=== PATIENT | female | born 1965 | race Caucasian/White ===

== ENCOUNTER 2020-01-07 21:29 | Emergency (ER) | payer BC ==
[2020-01-07] MEDS ORDERED: HYDROCODONE/APAP 10/325 TAB ONE (22:04)
[2020-01-07] MEDS ORDERED: FENTANYL CITR 100 MCG/2 ML ONE (23:10)
--- NOTE | 2020-01-08 00:21 | ER ---
Nurse's Notes [facility] Name: Leslye Pierson Age: 54 yrs Sex: Female : 1965 Arrival Date: 01/07/2020 Time: 21:30 Bed 18 Private MD: OMER RAMIREZ Diagnosis: Displaced fracture of greater tuberosity of right humerus;Other slipping, tripping and stumbling and falls Presentation: 01/06 21:37 Chief complaint: Patient states: I was walking my dog and he took off after something. jb4 The grass was wet so I fell on my right arm and I hurt something between my shoulder and elbow. I physically cannot move it. 21:37 Coronavirus screen: Client denies travel out of the [place] in the last 14 days. At this jb4 time, the client does not indicate any symptoms associated with coronavirus-19. Ebola Screen: No symptoms or risks identified at this time. Initial Sepsis Screen: Does the patient meet any 2 criteria? HR > 90 bpm. Yes Does the patient have a suspected source of infection? No. Patient's initial sepsis screen is negative. Risk Assessment: Do you want to hurt yourself or someone else? Patient reports no desire to harm self or others. Onset of symptoms was January 07, 2020 at 20:09. 21:37 Method Of Arrival: Ambulatory jb4 21:37 Acuity: YEFRI 3 jb4 Historical: - Allergies: 21:37 Sulfa (Sulfonamide Antibiotics); jb4 21:37 Cipro; jb4 - Home Meds: 21:37 Metformin Oral [Active]; Warfarin Oral [Active]; losartan 25 mg oral tab [Active]; jb4 - PMHx: 21:37 Hypertension; Diabetes - NIDDM; DVT; fatty liver; Hernia; jb4 - PSHx: 21:37 ; Cholecystectomy; Hysterectomy; Hernia repair; lap band; Carpal Tunnel Repair;jb4 - Immunization history:: Adult Immunizations up to date. - Social history:: Smoking status: Patient denies any tobacco usage or history of. Patient/guardian denies using alcohol, street drugs. Screenin:37 Abuse screen: Denies threats or abuse. Nutritional screening: No deficits noted. jb4 Tuberculosis screening: No symptoms or risk factors identified. Fall Risk None identified. Assessment: 21:37 General: Appears in no apparent distress. uncomfortable, Behavior is calm, cooperative, jb4 appropriate for age. Pain: Complains of pain in anterior aspect of right shoulder Pain radiates to right elbow Pain currently is 10 out of 10 on a pain scale. Quality of pain is described as shooting, Pain began 1 hour ago. Neuro: Level of Consciousness is awake, alert, obeys commands, Oriented to person, place, time, situation. Cardiovascular: Patient's skin is warm and dry. Respiratory: Airway is patent Respiratory effort is even, unlabored, Respiratory pattern is regular, symmetrical. GI: No signs and/or symptoms were reported involving the gastrointestinal system. : No signs and/or symptoms were reported regarding the genitourinary system. EENT: No signs and/or symptoms were reported regarding the EENT system. Derm: Skin is intact, Skin is pink, warm \T\ dry. Musculoskeletal: Circulation, motion, and sensation intact. Range of motion: limited in right shoulder. 22:45 Reassessment: Patient appears in no apparent distress at this time. Patient and/or jb4 family updated on plan of care and expected duration. Pain level reassessed. Patient is alert, oriented x 3, equal unlabored respirations, skin warm/dry/pink. Pt reports no decrease in pain. Provider notified, see MAR for orders. 01/07 00:00 Reassessment: Patient appears in no apparent distress at this time. Patient and/or jb4 family updated on plan of care and expected duration. Pain level reassessed. Patient is alert, oriented x 3, equal unlabored respirations, skin warm/dry/pink. Patient states feeling better. 01:00 Reassessment: Patient appears in no apparent distress at this time. Patient and/or jb4 family updated on plan of care and expected duration. Pain level reassessed. Patient is alert, oriented x 3, equal unlabored respirations, skin warm/dry/pink. PT verbalized understanding of d/c and follow up instructions, assisted to vehicle via wheelchair. Vital Signs: 01/06 21:37 BP 119 / 78; Pulse 105; Resp 20; Temp 99.8(O); Pulse Ox 100% on R/A; Weight 113.4 kg jb4 (R); Height 5 ft. 8 in. (172.72 cm) (R); Pain 10/10; 22:15 BP 108 / 85; Pulse 77; Resp 16; Pulse Ox 100% on R/A; jb4 23:00 BP 106 / 86; Pulse 78; Resp 16; Pulse Ox 100% on R/A; jb4 01/07 00:45 BP 90 / 70; Pulse 68; Resp 16; Pulse Ox 100% on R/A; jb4 01/06 21:37 Body Mass Index 38.01 (113.40 kg, 172.72 cm) jb ED Course: 01/06 21:30 Patient arrived in ED. am2 21:31 OMER RAMIREZ is Private Physician. am2 21:37 Olu Luan, RN is Primary Nurse. jb4 21:37 Arm band placed on right wrist. jb4 21:37 Patient has correct armband on for positive identification. Bed in low position. Call jb4 light in reach. Side rails up X 1. Pulse ox on. NIBP on. 21:41 Nate Naik PA is PHCP. cp 21:41 Yomi Ramachandran MD is Attending Physician. cp 21:59 Triage completed. jb4 22:57 XRAY Humerus RIGHT In Process Unspecified. EDMS 23:18 Inserted saline lock: 20 gauge in left forearm, using aseptic technique. jb4 23:39 CT Head C Spine In Process Unspecified. EDMS 01/07 00:04 Sling applied to right arm. dh4 00:19 Darius Quispe MD is Referral Physician. cp 00:34 IV discontinued, bleeding controlled, No redness/swelling at site. Pressure dressing tt3 applied. 01:00 No provider procedures requiring assistance completed. jb4 Administered Medications: 01/06 21:54 Drug: Hydrocodone-Acetaminophen (10 mg-500 mg) 1 tabs {Note: Rass score 0.} Route: PO; jb4 22:45 Follow up: Response: No adverse reaction; Pain is unchanged, physician notified; RASS: 4 Alert and Calm (0) 23:10 Drug: fentaNYL (PF) 25 mcg Route: IVP; Site: left forearm; jb4 23:40 Follow up: Response: No adverse reaction; Pain is decreased; RASS: Alert and Calm (0) [facility] Outcome: 01/07 00:21 Discharge ordered by . cp 01:00 Discharged to home via wheelchair, with family. jb4 01:00 Condition: stable 01:00 Discharge instructions given to patient, family, Instructed on discharge instructions, follow up and referral plans. medication usage, Demonstrated understanding of instructions, follow-up care, medications, Prescriptions given X 1. 01:04 Patient left the ED. jb4 Signatures: Dispatcher [employer] EDMS Nate Naik PA PA cp Bryson, James, RN RN jb4 Jeannie Baker am2 Jordan Caicedo 4 Sky Mari3 Corrections: (The following items were deleted from the chart) 01/06 23:19 23:10 fentaNYL (PF) 25 mcg IVP in left antecubital jb4 jb4 23:19 23:18 Inserted saline lock: 20 gauge in left wrist, using aseptic technique. jb4 jb4
--- NOTE | 2020-01-08 00:21 | EDPHYS ---
Physician Documentation [facility] Name: Leslye Pierson Age: 54 yrs Sex: Female : 1965 Arrival Date: 01/07/2020 Time: 21:30 Bed 18 Private MD: OMER RAMIREZ ED Physician Yomi Ramachandran HPI: 01/06 21:48 This 54 yrs old Female presents to ER via Ambulatory with complaints of cp Shoulder Injury, Fall Injury. 21:48 The patient or guardian complains of decreased range of motion, an injury, pain, that cp is acute. right shoulder and right upper arm. 21:48 Context: The problem was sustained at home, resulted from a fall, The patient cp experiences decreased range of motion, when attempts to raise arm. Onset: The symptoms/episode began/occurred just prior to arrival. Associated signs and symptoms: Pertinent positives: severe pain, tingling, Pertinent negatives: abdominal pain, chest pain, neck pain, Numbness in right arm. Details of fall: The patient fell from an upright position, while walking. Patient reports falling forward and landing on ground with arm extended forward. Historical: - Allergies: 21:37 Sulfa (Sulfonamide Antibiotics); jb4 21:37 Cipro; jb4 - Home Meds: 21:37 Metformin Oral [Active]; Warfarin Oral [Active]; losartan 25 mg oral tab [Active]; jb4 - PMHx: 21:37 Hypertension; Diabetes - NIDDM; DVT; fatty liver; Hernia; jb4 - PSHx: 21:37 ; Cholecystectomy; Hysterectomy; Hernia repair; lap band; Carpal Tunnel Repair;jb4 - Immunization history:: Adult Immunizations up to date. - Social history:: Smoking status: Patient denies any tobacco usage or history of. Patient/guardian denies using alcohol, street drugs. ROS: 21:50 Constitutional: Negative for body aches, chills, fever. cp 21:50 Neck: Negative for stiffness. 21:50 Cardiovascular: Negative for chest pain. 21:50 Respiratory: Negative for cough, shortness of breath, wheezing. 21:50 Abdomen/GI: Negative for abdominal pain, nausea, vomiting. 21:50 MS/extremity: Positive for injury or acute deformity, decreased range of motion, pain, tenderness, of the right upper arm. 21:50 Skin: Negative for rash. 21:50 Neuro: Negative for altered mental status, headache, loss of consciousness, syncope, weakness. 21:50 All other systems are negative. Exam: 22:00 Constitutional: The patient appears in no acute distress, alert, awake, cp non-diaphoretic, well developed, well nourished, obese, uncomfortable. 22:00 Head/Face: Normocephalic, atraumatic. cp 22:00 Eyes: Periorbital structures: appear normal, Conjunctiva: normal, no exudate, no injection, Lids and lashes: appear normal, bilaterally. 22:00 Neck: C-spine: vertebral tenderness, is not appreciated, crepitus, is not appreciated, ROM/movement: pain, is not appreciated, limited range of motion, is not appreciated. 22:00 Chest/axilla: Inspection: normal, Palpation: is normal, no crepitus, no tenderness. 22:00 Cardiovascular: Rate: tachycardic, Rhythm: regular. 22:00 Respiratory: the patient does not display signs of respiratory distress, Respirations: normal, no use of accessory muscles, no retractions, labored breathing, is not present, Breath sounds: are clear throughout, no decreased breath sounds, no stridor, no wheezing. 22:00 Abdomen/GI: Inspection: abdomen appears normal, Palpation: abdomen is soft and non-tender, in all quadrants. 22:00 Back: vertebral tenderness, is not appreciated. 22:00 Musculoskeletal/extremity: Extremities: grossly normal except: noted in the right upper arm: decreased ROM, pain, tenderness, ROM: limited passive range of motion, in the right shoulder, Pulses: noted to be 2+ in the right radial artery, the right upper arm Severe pain noted. 22:00 Neuro: Orientation: to person, place \T\ time. Mentation: is normal. Vital Signs: 21:37 BP 119 / 78; Pulse 105; Resp 20; Temp 99.8(O); Pulse Ox 100% on R/A; Weight 113.4 kg jb4 (R); Height 5 ft. 8 in. (172.72 cm) (R); Pain 10/10; 22:15 BP 108 / 85; Pulse 77; Resp 16; Pulse Ox 100% on R/A; jb4 23:00 BP 106 / 86; Pulse 78; Resp 16; Pulse Ox 100% on R/A; jb4 01/07 00:45 BP 90 / 70; Pulse 68; Resp 16; Pulse Ox 100% on R/A; jb4 01/06 21:37 Body Mass Index 38.01 (113.40 kg, 172.72 cm) [facility] Procedures: 00:45 Splinting: Splint applied to right shoulder using shoulder immobilizer. applied by cp nurse. Examined by me, post splint application: neurovascular intact, Patient tolerated well. MDM: 01/06 21:47 Patient medically screened. cp 22:00 Differential diagnosis: Anterior dislocation with fracture, Anterior dislocation cp without fracture, Posterior dislocation with fracture, Posterior dislocation without fracture, rotator cuff injury, humerus fracture. 23:55 Data reviewed: vital signs, nurses notes, radiologic studies, CT scan, plain films, I cp have discussed the patient's presentation/case with the attending Emergency Department Physician; and as a result, I will discharge patient. 23:55 Test interpretation: by ED physician or midlevel provider: xrays of right humerus show cp proximal humerus fracture. 01/07 00:20 Counseling: I had a detailed discussion with the patient and/or guardian regarding: the cp historical points, exam findings, and any diagnostic results supporting the discharge/admit diagnosis, radiology results, the need for outpatient follow up, for definitive care, a orthopedic surgeon, to return to the emergency department if symptoms worsen or persist or if there are any questions or concerns that arise at home. 00:20 Response to treatment: the patient's symptoms have markedly improved after treatment, cp Pain improved with meds. Will discharge to home for continued monitoring. 01/06 21:46 Order name: XRAY Humerus RIGHT cp 01/06 21:46 Order name: CT Head C Spine cp 01/06 22:53 Order name: IV; Complete Time: 23:17 cp 01/06 23:40 Order name: Shoulder Immobilizer; Complete Time: 00:04 cp Administered Medications: 01/06 21:54 Drug: Hydrocodone-Acetaminophen (10 mg-500 mg) 1 tabs {Note: Rass score 0.} Route: PO; [facility] 22:45 Follow up: Response: No adverse reaction; Pain is unchanged, physician notified; RASS: [facility] Alert and Calm (0) 23:10 Drug: fentaNYL (PF) 25 mcg Route: IVP; Site: left forearm; jb4 23:40 Follow up: Response: No adverse reaction; Pain is decreased; RASS: Alert and Calm (0) jb4 Disposition: 01/07 00:45 Chart complete. cp 06:58 Co-signature as Attending Physician, Yomi Ramachandran MD. mh7 Disposition: 01/08/20 00:21 Discharged to Home. Impression: Displaced fracture of greater tuberosity of right humerus, Other slipping, tripping and stumbling and falls. - Condition is Stable. - Discharge Instructions: Fall Prevention in the Home, Humerus Fracture Treated With Immobilization. - Prescriptions for Tylenol- Codeine #3 300-30 mg Oral Tablet - take 2 tablets by ORAL route every 6 hours As needed; 20 tablet. - Medication Reconciliation Form, Thank You Letter, Antibiotic Education, Prescription Opioid Use form. - Follow up: Darius Quispe MD; When: 1 - 2 days; Reason: right shoulder fracture. - Problem is new. - Symptoms have improved. Signatures: Dispatcher [employer] EDOR Nate Naik PA PA cp Bryson, James, RN RN [facility] Yomi Ramachandran MD MD 7 Corrections: (The following items were deleted from the chart) 01/06 23:59 23:01 Shoulder 1 View+RAD.RAD.[email or web address] ordered. [facility] 01/07 01:04 00:21 01/08/2020 00:21 Discharged to Home. Impression: Displaced fracture of greater jb4 tuberosity of right humerus; Other slipping, tripping and stumbling and falls. Condition is Stable. Forms are Medication Reconciliation Form, Thank You Letter, Antibiotic Education, Prescription Opioid Use. Follow up: Darius Quispe; When: 1 - 2 days; Reason: right shoulder fracture. Problem is new. Symptoms have improved. cp
[2020-01-08 01:15] VITALS: TEMP 99.8; O2SAT 100
[2020-01-08 01:19] VITALS: BP 90/70
--- NOTE | 2020-01-08 14:56 | RAD REPORT ---
EXAM DESCRIPTION: Head C Spine Mpr Wo Con CLINICAL HISTORY: Fall, headache COMPARISON: None. TECHNIQUE: CT Head and Cervical spine WO contrast on 01/07/2020 9:46 PM CDT This exam was performed according to our departmental dose-optimization program, which includes autom ated exposure control, adjustment of the mA and/or kV according to patient size and/or use of iterati ve reconstruction technique. FINDINGS: Brain: There is no acute hemorrhage, mass effect or midline shift. Edgar-white differentiat ion is preserved. There is no hydrocephalus. There is no significant volume loss for age. The calvarium is intact. Orbits and globes are unremarkable. The paranasal sinuses are clear. Mastoid air cells are clear. Cervical Spine: There is no acute fracture. Alignment is anatomic. Disc spaces are maintained. Vertebral body heights are preserved. Soft tissues are unremarkable. IMPRESSION: No definite posttraumatic findings. Electronically signed by: Wali Fair MD 01/07/2020 11:45 PM CDT Due to temporary technical issues with the PACS/Fluency reporting system, reports are being signed by the in house radiologist without review as a courtesy to ensure prompt reporting. The interpreting r adiologist is fully responsible for the content of the report.
--- NOTE | 2020-01-08 16:36 | RAD REPORT ---
EXAM DESCRIPTION: Humerus Right CLINICAL HISTORY: 54 years Female, fall;Pain Humerus Right COMPARISON: None. FINDINGS/IMPRESSION: Mildly displaced fracture of the greater tuberosity. No dislocation. Bone mineralization is normal. Joint spaces are preserved. Electronically signed by: Estevan Watson DO 01/07/2020 11:18 PM CDT Due to temporary technical issues with the PACS/Fluency reporting system, reports are being signed by the in house radiologist without review as a courtesy to ensure prompt reporting. The interpreting r adiologist is fully responsible for the content of the report.
== END 2020-01-08 01:04 | disposition home or self-care (01) ==
LOC: ER 21:29
DX: S42.251A Displaced fracture of greater tuberosity of right humerus, initial encounter for closed fracture (principal); W01.0XXA Fall on same level from slipping, tripping and stumbling without subsequent striking against object, initial encounter; Y93.89 Activity, other specified; Y92.9 Unspecified place or not applicable; Z88.2 Allergy status to sulfonamides; Z88.1 Allergy status to other antibiotic agents; I10 Essential (primary) hypertension
CPT/HCPCS: 70450; 72125; 73060; 96374; 99284; J3010